=== PATIENT | male | born 1940 | race Native Hawaiian/Other Pacific Islander ===

== ENCOUNTER 2016-10-26 09:14 | Outpatient (CLI) | payer OTHER ==
[~2016-10-26 09:14] MED LIST: ENALAPR/HCTZ1 TA1 PO; K-TABS10 MEQ OR; NIACIN SR500 M1 OR; SIMV40TA57; [UNRECOGNIZED DRUG - REMARK] OR
== END 2016-10-26 19:05 | disposition home or self-care (01) ==
LOC: MRI 09:14
DX: G83.14 Monoplegia of lower limb affecting left nondominant side (principal); I63.8 Other cerebral infarction

== ENCOUNTER 2016-11-23 08:56 | Day surgery (SDC) | payer OTHER | END 2016-11-23 12:00 | disposition home or self-care (01) | LOC: OR 08:56 | PROC: 08RJ3JZ Replacement of Right Lens with Synthetic Substitute, Percutaneous Approach (ICD-10-PCS; principal; 2016-11-23) | DX: H25.811 Combined forms of age-related cataract, right eye (principal) | CPT/HCPCS: 66984; V2632 ==

== ENCOUNTER 2016-12-14 10:16 | Day surgery (SDC) | payer OTHER | END 2016-12-14 11:52 | disposition home or self-care (01) | LOC: OR 10:16 | DX: H25.812 Combined forms of age-related cataract, left eye (principal); Z53.8 Procedure and treatment not carried out for other reasons ==

== ENCOUNTER 2016-12-24 10:14 | Outpatient (CLI) | payer OTHER ==
[2016-12-24 12:20] LABS: PLATELET COUNT 275 K/uL (142-355)
[2016-12-24 12:47] LABS: POTASSIUM 3.3 mmol/L (3.6-5.2)
== END 2016-12-24 17:53 | disposition home or self-care (01) ==
LOC: LABW 10:14
PROVIDERS: Internal Medicine
DX: I63.8 Other cerebral infarction (principal); R07.89 Other chest pain; I10 Essential (primary) hypertension
CPT/HCPCS: 36415; 80053; 80061; 81000; 84443; 85027

== ENCOUNTER 2016-12-31 09:33 | Outpatient (CLI) | payer OTHER | END 2016-12-31 10:35 | disposition home or self-care (01) | LOC: MRI 09:33 | DX: I63.8 Other cerebral infarction (principal) ==

== ENCOUNTER 2017-03-15 10:37 | Outpatient (CLI) | payer OTHER | END 2017-03-15 19:03 | disposition home or self-care (01) | LOC: RAD 10:37 | DX: M54.5 Low back pain (principal) ==

== ENCOUNTER 2017-04-22 09:35 | Outpatient (CLI) | payer OTHER ==
[2017-04-22 10:04] LABS: PLATELET COUNT 306 K/uL (142-355)
[2017-04-22 10:21] LABS: POTASSIUM 3.4 mmol/L (3.6-5.2)
== END 2017-04-22 10:35 | disposition home or self-care (01) ==
LOC: LABW 09:35
PROVIDERS: Nurse Practitioner
DX: G45.8 Other transient cerebral ischemic attacks and related syndromes (principal); Z79.899 Other long term (current) drug therapy; Z51.81 Encounter for therapeutic drug level monitoring; R41.0 Disorientation, unspecified
CPT/HCPCS: 36415; 80053; 81000; 85027; 85610; 85651

== ENCOUNTER 2017-07-27 16:37 | Outpatient (CLI) | payer OTHER | END 2017-07-27 16:41 | disposition short-term general hospital (02) | LOC: AMB 16:37 | DX: S01.81XA Laceration without foreign body of other part of head, initial encounter (principal); S61.412A Laceration without foreign body of left hand, initial encounter; S61.411A Laceration without foreign body of right hand, initial encounter; W18.39XA Other fall on same level, initial encounter; Y92.098 Other place in other non-institutional residence as the place of occurrence of the external cause | CPT/HCPCS: A0425; A0427 ==

== ENCOUNTER 2017-07-27 16:43 | Emergency (ER) | payer OTHER ==
[~2017-07-27] VITALS: Ht 180.3 cm; Wt 98.0 kg
[2017-07-27 18:14] LABS: PLATELET COUNT 260 K/uL (142-355)
[2017-07-27 18:29] LABS: PARTIAL THROMBOPLASTIN TIME 21.9 SECONDS (24.5-33.6)
[2017-07-27 21:08] VITALS: BP 141/76; TEMP 98.6
== END 2017-07-27 21:12 | disposition home or self-care (01) ==
LOC: ED 16:43
PROC: 0HQ1XZZ Repair Face Skin, External Approach (ICD-10-PCS; principal; 2017-07-27)
PROC: 0HQGXZZ Repair Left Hand Skin, External Approach (ICD-10-PCS; 2017-07-27)
PROC: 0HQFXZZ Repair Right Hand Skin, External Approach (ICD-10-PCS; 2017-07-27)
DX: S01.112A Laceration without foreign body of left eyelid and periocular area, initial encounter (principal); S61.216A Laceration without foreign body of right little finger without damage to nail, initial encounter; S61.012A Laceration without foreign body of left thumb without damage to nail, initial encounter; S00.83XA Contusion of other part of head, initial encounter; R51 Headache; W18.39XA Other fall on same level, initial encounter; Y92.098 Other place in other non-institutional residence as the place of occurrence of the external cause
CPT/HCPCS: 85027; 85610; 85730; 87804; 99285; J1885

== ENCOUNTER 2017-08-03 11:20 | Inpatient (IN) | payer OTHER ==
[~2017-08-03] VITALS: Ht 180.3 cm; Wt 94.6 kg
[2017-08-03] VITALS (11 sets, daily range): BP systolic 105–200; BP diastolic 73–121; TEMP 98.5–98.6; Ht 180.3 cm; Wt 94.6 kg
[2017-08-03] MEDS ORDERED: BENA10TA3 PO (11:37)
[2017-08-03] MEDS ORDERED: DONE5TAB PO (11:38)
[2017-08-03] MEDS ORDERED: CLOP75TA2 PO (11:38)
[2017-08-03] MEDS ORDERED: SIMV40TA57 (11:39)
[2017-08-03] MEDS ORDERED: MELOXICAM7.5 MG OR (11:39)
[2017-08-03] MEDS ORDERED: FLUTICASONE50 MCG (11:39)
[2017-08-03] MEDS ORDERED: LATA0.00 OP (11:40)
[2017-08-03 13:43] LABS: POTASSIUM 3.8 mmol/L (3.6-5.2)
[2017-08-04] VITALS (23 sets, daily range): BP systolic 117–185; BP diastolic 61–98; TEMP 98.5–99
[2017-08-04 06:13] LABS: PLATELET COUNT 332 K/uL (142-355)
[2017-08-04 06:30] LABS: POTASSIUM 3.6 mmol/L (3.6-5.2)
[2017-08-05] VITALS (18 sets, daily range): BP systolic 139–180; BP diastolic 73–94; TEMP 97.8–98.5
[2017-08-05 06:30] LABS: PLATELET COUNT 359 K/uL (142-355)
[2017-08-05 06:42] LABS: POTASSIUM 3.4 mmol/L (3.6-5.2)
[2017-08-06] VITALS: BP 151/78; TEMP 99.2
[2017-08-06 04:00] VITALS: BP 165/86; TEMP 99.2
[2017-08-06 05:44] LABS: PLATELET COUNT 390 K/uL (142-355)
[2017-08-06 05:57] LABS: POTASSIUM 3.5 mmol/L (3.6-5.2)
[2017-08-06 08:00] VITALS: BP 138/70; TEMP 97.9
== END 2017-08-06 09:15 | disposition home or self-care (01) | DRG 176 ==
LOC: ED 11:20 → ICU 16:00 → MED/SURG 08-05 16:39
PROVIDERS: Internal Medicine; ADMIT Internal Medicine
DX: I26.99 Other pulmonary embolism without acute cor pulmonale (principal); I67.4 Hypertensive encephalopathy; I16.0 Hypertensive urgency; M51.36 Other intervertebral disc degeneration, lumbar region; I69.344 Monoplegia of lower limb following cerebral infarction affecting left non-dominant side; M25.512 Pain in left shoulder; Z91.81 History of falling
CPT/HCPCS: 36415; 80053; 82550; 84484; 85027; 85379; 93005; 96372; 99285; J0360; J1650; Q9963

== ENCOUNTER 2017-09-13 13:40 | Outpatient (CLI) | payer OTHER ==
[~2017-09-13 13:40] MED LIST changes: +BENA10TA3 PO; +CLOP75TA2 PO; +DONE5TAB PO; +FLUTICASONE50 MCG; +LATA0.00 OP; +MELOXICAM7.5 MG OR
== END 2017-09-13 21:49 | disposition home or self-care (01) ==
LOC: RAD 13:40
DX: M89.8X1 Other specified disorders of bone, shoulder (principal)

== ENCOUNTER 2018-01-25 08:14 | Outpatient (CLI) | payer OTHER ==
[2018-01-25 08:59] LABS: PLATELET COUNT 285 K/uL (142-355)
[2018-01-25 09:38] LABS: POTASSIUM 3.5 mmol/L (3.6-5.2)
== END 2018-01-25 19:04 | disposition home or self-care (01) ==
LOC: LABW 08:14
PROVIDERS: Internal Medicine
DX: E55.9 Vitamin D deficiency, unspecified (principal); Z79.899 Other long term (current) drug therapy; E53.8 Deficiency of other specified B group vitamins; I10 Essential (primary) hypertension
CPT/HCPCS: 36415; 80053; 80061; 81000; 82306; 82607; 84443; 85027

== ENCOUNTER 2018-01-27 13:33 | Emergency (ER) | payer OTHER ==
[~2018-01-27] VITALS: Ht 180.3 cm; Wt 97.5 kg
[2018-01-27 13:34] VITALS: TEMP 99.9
[2018-01-27 14:01] LABS: PLATELET COUNT 278 K/uL (142-355)
[2018-01-27 14:20] LABS: POTASSIUM 3.4 mmol/L (3.6-5.2)
[2018-01-27 14:45] VITALS: BP 170/79
== END 2018-01-27 17:05 | disposition short-term general hospital (02) ==
LOC: ED 13:33
PROVIDERS: Family Medicine
DX: R07.89 Other chest pain (principal); R68.89 Other general symptoms and signs
CPT/HCPCS: 36415; 80053; 83880; 84484; 85027; 93005; 96372; 99284; J1650

== ENCOUNTER 2018-01-27 17:09 | Outpatient (CLI) | payer OTHER | END 2018-01-27 18:22 | disposition short-term general hospital (02) | LOC: AMB 17:09 | DX: R07.89 Other chest pain (principal); R68.89 Other general symptoms and signs | CPT/HCPCS: A0425; A0427 ==

== ENCOUNTER 2018-03-15 07:34 | Outpatient (CLI) | payer OTHER ==
[~2018-03-15] VITALS: Ht 180.3 cm; Wt 95.3 kg
== END 2018-03-15 23:22 | disposition home or self-care (01) ==
LOC: NM 07:34
DX: R07.89 Other chest pain (principal)
CPT/HCPCS: A9500; J2785

== ENCOUNTER 2018-11-13 04:40 | Outpatient (CLI) | payer OTHER ==
[~2018-11-13 04:40] MED LIST changes: -ASPIRIN325 M1 PO; -CARV3.12 PO; -CLARITIN10 MG PO; -ELIQUIS5 MG PO; -NITR0.4S2 SL; -VITAMIN D35000 UNI6 PO
[2018-11-13] MEDS ORDERED: CARV3.12 PO (06:37)
[2018-11-13] MEDS ORDERED: ASPIRIN325 M1 PO (06:37)
[2018-11-13] MEDS ORDERED: ELIQUIS5 MG PO (06:40)
[2018-11-13] MEDS ORDERED: CLARITIN10 MG PO (06:40)
[2018-11-13] MEDS ORDERED: NITR0.4S2 SL (06:41)
[2018-11-13] MEDS ORDERED: VITAMIN D35000 UNI6 PO (06:42)
== END 2018-11-13 04:44 | disposition short-term general hospital (02) ==
LOC: AMB 04:40
DX: R47.81 Slurred speech (principal); R53.1 Weakness; S01.511A Laceration without foreign body of lip, initial encounter; W18.30XA Fall on same level, unspecified, initial encounter; Y92.018 Other place in single-family (private) house as the place of occurrence of the external cause
CPT/HCPCS: A0425; A0427

== ENCOUNTER → 2018-11-13 | Emergency (ER) | payer OTHER ==
[~2018-11-13] VITALS: Ht 180.3 cm; Wt 95.3 kg
[~2018-11-13] MED LIST changes: +ASPIRIN325 M1 PO; +CARV3.12 PO; +CLARITIN10 MG PO; +ELIQUIS5 MG PO; +NITR0.4S2 SL; +VITAMIN D35000 UNI6 PO
[2018-11-13 05:25] LABS: PLATELET COUNT 288 K/uL (142-355)
[2018-11-13 05:35] LABS: POTASSIUM 3.4 mmol/L (3.6-5.2)
[2018-11-13 06:30] VITALS: BP 195/86
== END ==
LOC: ED 04:49
PROVIDERS: Emergency Medicine
DX: I63.89 Other cerebral infarction (principal); R29.810 Facial weakness; I69.328 Other speech and language deficits following cerebral infarction
CPT/HCPCS: 80053; 85027; 93005; 99285

== ENCOUNTER 2018-11-21 16:36 | Inpatient (IN) | payer OTHER ==
[~2018-11-21] VITALS: Ht 180.3 cm; Wt 89.2 kg
[~2018-11-21 16:36] MED LIST changes: +ASPIRIN325 M1 PO; +CARV3.12 PO; +CLARITIN10 MG PO; +ELIQUIS5 MG PO; +NITR0.4S2 SL; +VITAMIN D35000 UNI6 PO
[2018-11-21 17:05] VITALS: BP 162/60; TEMP 99.1; Ht 180.3 cm; Wt 89.2 kg
[2018-11-21 17:40] LABS: PLATELET COUNT 327 K/uL (142-355)
[2018-11-21 17:51] LABS: POTASSIUM 3.8 mmol/L (3.6-5.2)
[2018-11-21] MEDS ORDERED: AMLODIPINE BESYLATE PO (18:27)
[2018-11-21] MEDS ORDERED: LIPITOR80 MG PO (18:28)
[2018-11-21] MEDS ORDERED: CITA20TA2 PO (18:29)
[2018-11-21] MEDS ORDERED: DOCU100C10 PO (18:29)
[2018-11-21] MEDS ORDERED: HYDRALAZINE10 MG PO (18:30)
[2018-11-21] MEDS ORDERED: ZESTRIL40 MG PO (18:32)
[2018-11-21] MEDS ORDERED: SENNA PO (18:35)
[2018-11-21] MEDS ORDERED: LEVO250T2 PO (18:37)
[2018-11-21 20:00] VITALS: BP 115/96; TEMP 98.1
[2018-11-22 20:39] VITALS: BP 186/91; TEMP 99.1
[2018-11-23 20:00] VITALS: BP 151/61; TEMP 98
[2018-11-24 05:15] LABS: POTASSIUM 3.5 mmol/L (3.6-5.2)
[2018-11-24 08:00] VITALS: BP 179/77; TEMP 98.1
[2018-11-24 20:00] VITALS: BP 165/69; TEMP 98.7
[2018-11-25 08:00] VITALS: BP 166/72; TEMP 98.1
[2018-11-25 20:00] VITALS: BP 163/71; TEMP 98.4
[2018-11-27 08:05] VITALS: BP 153/68; TEMP 99.2
[2018-11-27 20:00] VITALS: BP 159/71; TEMP 98.9
[2018-11-28 08:00] VITALS: BP 166/67; TEMP 98.1
[2018-11-28 10:12] LABS: POTASSIUM 3.9 mmol/L (3.6-5.2)
== END 2018-11-28 13:30 | DRG 555 ==
LOC: MED/SURG 16:36
PROVIDERS: ADMIT Internal Medicine
DX: M62.81 Muscle weakness (generalized) (principal); I63.511 Cerebral infarction due to unspecified occlusion or stenosis of right middle cerebral artery; I69.354 Hemiplegia and hemiparesis following cerebral infarction affecting left non-dominant side; I10 Essential (primary) hypertension; F03.90 Unspecified dementia, unspecified severity, without behavioral disturbance, psychotic disturbance, mood disturbance, and anxiety; E04.1 Nontoxic single thyroid nodule; I25.10 Atherosclerotic heart disease of native coronary artery without angina pectoris; N40.0 Benign prostatic hyperplasia without lower urinary tract symptoms; R13.12 Dysphagia, oropharyngeal phase
CPT/HCPCS: 80053; 81000; 85027; 94760

== ENCOUNTER 2018-12-19 11:55 | Inpatient (IN) | payer OTHER ==
[~2018-12-19 11:55] MED LIST changes: +AMLODIPINE BESYLATE PO; +CITA20TA2 PO; +DOCU100C10 PO; +HYDRALAZINE10 MG PO; +LEVO250T2 PO; +LIPITOR80 MG PO; +SENNA PO; +ZESTRIL40 MG PO
== END 2019-01-19 11:52 | disposition still patient (30) ==
LOC: PAVC 11:55
PROVIDERS: ADMIT Internal Medicine
DX: I69.354 Hemiplegia and hemiparesis following cerebral infarction affecting left non-dominant side (principal); I63.411 Cerebral infarction due to embolism of right middle cerebral artery; M62.81 Muscle weakness (generalized); R26.2 Difficulty in walking, not elsewhere classified; R13.12 Dysphagia, oropharyngeal phase; R27.8 Other lack of coordination; I25.10 Atherosclerotic heart disease of native coronary artery without angina pectoris; F03.90 Unspecified dementia, unspecified severity, without behavioral disturbance, psychotic disturbance, mood disturbance, and anxiety; F41.9 Anxiety disorder, unspecified; I10 Essential (primary) hypertension

== ENCOUNTER 2019-01-19 14:01 | Inpatient (IN) | payer OTHER | END 2019-02-19 17:15 | disposition still patient (30) | LOC: PAVC 14:01 | PROVIDERS: ADMIT Internal Medicine ==

== ENCOUNTER 2019-01-31 16:42 | Outpatient (CLI) | payer OTHER | END 2019-01-31 20:53 | disposition home or self-care (01) | LOC: RAD 16:42 | DX: R13.12 Dysphagia, oropharyngeal phase (principal) ==

== ENCOUNTER 2019-02-19 17:34 | Inpatient (IN) | payer OTHER | END 2019-03-21 12:56 | disposition still patient (30) | LOC: PAVC 17:34 | PROVIDERS: ADMIT Internal Medicine ==

== ENCOUNTER 2019-03-14 15:10 | Outpatient (CLI) | payer OTHER ==
[2019-03-14 15:32] LABS: PLATELET COUNT 308 K/uL (142-355)
[2019-03-14 15:59] LABS: POTASSIUM 4.4 mmol/L (3.6-5.2)
== END 2019-03-14 19:42 | disposition home or self-care (01) ==
LOC: LAB 15:10
PROVIDERS: Internal Medicine
DX: R40.0 Somnolence (principal)
CPT/HCPCS: 80053; 81000; 85027

== ENCOUNTER 2019-03-21 13:23 | Inpatient (IN) | payer OTHER | END 2019-04-21 14:04 | disposition still patient (30) | LOC: PAVC 13:23 | PROVIDERS: ADMIT Internal Medicine ==

== ENCOUNTER 2019-04-21 14:24 | Inpatient (IN) | payer OTHER | END 2019-05-21 08:00 | disposition still patient (30) | LOC: PAVC 14:24 | PROVIDERS: ADMIT Internal Medicine ==

== ENCOUNTER 2019-05-09 15:37 | Outpatient (CLI) | payer OTHER | END 2019-05-09 22:19 | disposition home or self-care (01) | LOC: RAD 15:37 | DX: M25.512 Pain in left shoulder (principal); M54.2 Cervicalgia ==

== ENCOUNTER 2019-05-21 11:00 | Inpatient (IN) | payer OTHER | END 2019-06-21 09:29 | disposition still patient (30) | LOC: PAVC 11:00 | PROVIDERS: ADMIT Internal Medicine ==

== ENCOUNTER 2019-05-22 13:40 | Outpatient (CLI) | payer OTHER ==
[2019-05-22 14:16] LABS: POTASSIUM 4.3 mmol/L (3.6-5.2)
[2019-05-22 14:20] LABS: PLATELET COUNT 332 K/uL (142-355)
== END 2019-05-22 20:47 | disposition home or self-care (01) ==
LOC: LAB 13:40
PROVIDERS: Internal Medicine
DX: I10 Essential (primary) hypertension (principal); I63.411 Cerebral infarction due to embolism of right middle cerebral artery; I25.10 Atherosclerotic heart disease of native coronary artery without angina pectoris
CPT/HCPCS: 80053; 85027

== ENCOUNTER 2019-06-09 13:01 | Outpatient (CLI) | payer OTHER | END 2019-06-09 19:42 | disposition home or self-care (01) | LOC: LAB 13:01 | DX: M25.551 Pain in right hip (principal); M10.9 Gout, unspecified | CPT/HCPCS: 84550 ==

== ENCOUNTER 2019-06-09 13:23 | Outpatient (CLI) | payer OTHER | END 2019-06-09 19:43 | disposition home or self-care (01) | LOC: RAD 13:23 | DX: M25.551 Pain in right hip (principal) ==

== ENCOUNTER 2019-07-22 11:05 | Inpatient (IN) | payer OTHER | END 2019-08-20 14:09 | disposition still patient (30) | LOC: PAVC 11:05 | PROVIDERS: ADMIT Internal Medicine ==

== ENCOUNTER 2019-08-20 14:28 | Inpatient (IN) | payer OTHER | END 2019-09-20 11:34 | disposition still patient (30) | LOC: PAVC 14:28 | PROVIDERS: ADMIT Internal Medicine ==

== ENCOUNTER 2019-09-20 12:02 | Inpatient (IN) | payer OTHER | END 2019-10-20 11:20 | disposition still patient (30) | LOC: PAVC 12:02 | PROVIDERS: ADMIT Internal Medicine ==

== ENCOUNTER 2019-10-20 11:45 | Inpatient (IN) | payer OTHER | END 2019-11-20 11:20 | disposition still patient (30) | LOC: PAVC 11:45 | PROVIDERS: ADMIT Internal Medicine | CPT/HCPCS: 87635; U0002 ==

== ENCOUNTER 2019-11-20 11:33 | Inpatient (IN) | payer OTHER | END 2019-12-20 11:54 | disposition still patient (30) | LOC: PAVC 11:33 | PROVIDERS: ADMIT Internal Medicine ==

== ENCOUNTER 2019-11-21 02:22 | Outpatient (CLI) | payer OTHER ==
[2019-11-21 06:03] LABS: PLATELET COUNT 345 K/uL (142-355)
[2019-11-21 06:15] LABS: POTASSIUM 4.1 mmol/L (3.6-5.2)
== END 2019-11-21 19:03 | disposition home or self-care (01) ==
LOC: LAB 02:22
PROVIDERS: Internal Medicine
DX: I63.411 Cerebral infarction due to embolism of right middle cerebral artery (principal); I10 Essential (primary) hypertension
CPT/HCPCS: 80053; 85027

== ENCOUNTER 2019-12-20 12:02 | Inpatient (IN) | payer OTHER | END 2020-01-20 10:12 | disposition still patient (30) | LOC: PAVC 12:02 | PROVIDERS: ADMIT Internal Medicine ==

== ENCOUNTER 2020-01-20 10:21 | Inpatient (IN) | payer OTHER | END 2020-02-20 14:00 | disposition still patient (30) | LOC: PAVC 10:21 | PROVIDERS: ADMIT Internal Medicine ==

== ENCOUNTER 2020-02-16 06:36 | Outpatient (CLI) | payer OTHER | END 2020-02-16 20:28 | disposition home or self-care (01) | LOC: LAB 06:36 | DX: Z12.5 Encounter for screening for malignant neoplasm of prostate (principal); R97.20 Elevated prostate specific antigen [PSA] | CPT/HCPCS: 84153 ==

== ENCOUNTER 2020-02-20 14:21 | Inpatient (IN) | payer OTHER | END 2020-03-21 14:07 | disposition still patient (30) | LOC: PAVC 14:21 | PROVIDERS: ADMIT Internal Medicine ==

== ENCOUNTER 2020-03-21 14:54 | Inpatient (IN) | payer OTHER | END 2020-04-21 09:00 | disposition still patient (30) | LOC: PAVC 14:54 | PROVIDERS: ADMIT Internal Medicine ==

== ENCOUNTER 2020-04-21 09:00 | Inpatient (IN) | payer OTHER | END 2020-05-21 12:23 | disposition still patient (30) | LOC: PAVC 09:00 | PROVIDERS: ADMIT Internal Medicine; ATTEND Internal Medicine ==

== ENCOUNTER 2020-05-21 12:32 | Inpatient (IN) | payer OTHER | END 2020-06-21 09:46 | disposition still patient (30) | LOC: PAVC 12:32 | PROVIDERS: ADMIT Internal Medicine; ATTEND Internal Medicine ==

== ENCOUNTER 2020-05-22 08:19 | Outpatient (CLI) | payer OTHER ==
[2020-05-22 08:36] LABS: PLATELET COUNT 260 K/uL (142-355)
== END 2020-05-22 19:29 | disposition home or self-care (01) ==
LOC: LAB 08:19
PROVIDERS: ATTEND Internal Medicine
DX: I63.411 Cerebral infarction due to embolism of right middle cerebral artery (principal); I10 Essential (primary) hypertension
CPT/HCPCS: 80053; 85027

== ENCOUNTER 2020-06-21 09:55 | Inpatient (IN) | payer OTHER | END 2020-07-22 15:29 | disposition still patient (30) | LOC: PAVC 09:55 | PROVIDERS: ADMIT Internal Medicine; ATTEND Internal Medicine ==

== ENCOUNTER 2020-07-22 15:53 | Inpatient (IN) | payer OTHER | END 2020-08-19 11:01 | disposition still patient (30) | LOC: PAVC 15:53 | PROVIDERS: ADMIT Internal Medicine; ATTEND Internal Medicine ==

== ENCOUNTER 2020-08-19 11:27 | Inpatient (IN) | payer OTHER | END 2020-09-19 11:41 | disposition still patient (30) | LOC: PAVC 11:27 | PROVIDERS: ADMIT Internal Medicine; ATTEND Internal Medicine ==

== ENCOUNTER 2020-09-19 11:52 | Inpatient (IN) | payer OTHER | END 2020-10-19 11:24 | disposition still patient (30) | LOC: PAVC 11:52 | PROVIDERS: ADMIT Internal Medicine; ATTEND Internal Medicine ==

== ENCOUNTER 2020-10-04 06:50 | Outpatient (CLI) | payer OTHER | END 2020-10-04 19:16 | disposition home or self-care (01) | LOC: LAB 06:50 | PROVIDERS: ATTEND Internal Medicine | DX: R97.20 Elevated prostate specific antigen [PSA] (principal) | CPT/HCPCS: 84153 ==

== ENCOUNTER 2020-10-19 11:32 | Inpatient (IN) | payer OTHER | END 2020-11-19 15:43 | disposition still patient (30) | LOC: PAVC 11:32 | PROVIDERS: ADMIT Internal Medicine; ATTEND Internal Medicine ==

== ENCOUNTER 2020-11-10 17:06 | Outpatient (CLI) | payer OTHER | END 2020-11-10 18:09 | disposition home or self-care (01) | LOC: LAB 17:06 | PROVIDERS: ATTEND Internal Medicine | DX: R19.4 Change in bowel habit (principal); R19.7 Diarrhea, unspecified | CPT/HCPCS: 83630; 87015; 87045; 87324; 87328; 87329; 87449; 87899 ==

== ENCOUNTER 2020-11-19 07:13 | Outpatient (CLI) | payer OTHER ==
[2020-11-19 09:34] LABS: PLATELET COUNT 274 K/uL (142-355)
== END 2020-11-19 19:06 | disposition home or self-care (01) ==
LOC: LAB 07:13
PROVIDERS: ATTEND Internal Medicine
DX: I10 Essential (primary) hypertension (principal); Z12.5 Encounter for screening for malignant neoplasm of prostate; I63.411 Cerebral infarction due to embolism of right middle cerebral artery; R97.20 Elevated prostate specific antigen [PSA]
CPT/HCPCS: 80053; 84153; 85027

== ENCOUNTER 2020-11-19 16:55 | Inpatient (IN) | payer OTHER | END 2020-12-19 08:00 | disposition still patient (30) | LOC: PAVC 16:55 | PROVIDERS: ADMIT Internal Medicine; ATTEND Internal Medicine ==

== ENCOUNTER 2020-11-29 08:10 | Emergency (ER) | payer OTHER ==
[~2020-11-29] VITALS: Ht 180.3 cm; Wt 88.9 kg
[2020-11-29 08:15] VITALS: TEMP 99
[2020-11-29 08:52] LABS: PLATELET COUNT 245 K/uL (142-355)
[2020-11-29 08:58] LABS: POTASSIUM 4.2 mmol/L (3.6-5.2)
[2020-11-29 09:06] LABS: PARTIAL THROMBOPLASTIN TIME 26.5 SECONDS (24.5-33.6)
[2020-11-29 10:49] VITALS: BP 161/67
== END 2020-11-29 10:59 ==
LOC: ED 08:15
PROVIDERS: Family Medicine
DX: S60.512A Abrasion of left hand, initial encounter (principal); S70.01XA Contusion of right hip, initial encounter; S61.213A Laceration without foreign body of left middle finger without damage to nail, initial encounter; S61.215A Laceration without foreign body of left ring finger without damage to nail, initial encounter; W05.0XXA Fall from non-moving wheelchair, initial encounter; Y92.128 Other place in nursing home as the place of occurrence of the external cause
CPT/HCPCS: 80053; 81000; 85027; 85610; 85730; 99283

== ENCOUNTER 2020-12-01 19:46 | Outpatient (CLI) | payer OTHER | END 2020-12-01 20:32 | disposition home or self-care (01) | LOC: RAD 19:46 | PROVIDERS: ATTEND Internal Medicine | DX: R06.02 Shortness of breath (principal) ==

== ENCOUNTER 2020-12-19 09:00 | Inpatient (IN) | payer OTHER ==
[~2020-12-19 09:00] MED LIST changes: +ASPIRIN PO; -ASPIRIN325 M1 PO; +FLUTICASON50 MCG/ACT NAS; -FLUTICASONE50 MCG
[2021-01-10] MEDS ORDERED: MELATONIN10 MG PO (01:40)
[2021-01-10] MEDS ORDERED: K-TAB20 MEQ PO (01:45)
[2021-01-10] MEDS ORDERED: CARV6.25 PO (01:50)
[2021-01-10] MEDS ORDERED: FLUTICASON50 MCG/ACT NAS (01:57)
[2021-01-10] MEDS ORDERED: NAPROXEN SODIU500 M1 PO (01:59)
[2021-01-10] MEDS ORDERED: CLARITIN10 M1 PO (02:08)
[2021-01-10] MEDS ORDERED: TYLENOL325 MG PO (02:13)
[2021-01-10] MEDS ORDERED: LIPITOR40 MG PO (12:14)
== END 2021-01-19 08:00 | disposition still patient (30) ==
LOC: PAVC 09:00
PROVIDERS: ADMIT Internal Medicine; ATTEND Internal Medicine
DX: I69.322 Dysarthria following cerebral infarction (principal); I69.392 Facial weakness following cerebral infarction; I69.354 Hemiplegia and hemiparesis following cerebral infarction affecting left non-dominant side; R13.12 Dysphagia, oropharyngeal phase; M62.81 Muscle weakness (generalized); R26.2 Difficulty in walking, not elsewhere classified; Z74.1 Need for assistance with personal care

== ENCOUNTER 2020-12-24 04:28 | Outpatient (CLI) | payer OTHER ==
[~2020-12-24 04:28] MED LIST changes: -ASPIRIN PO; +ASPIRIN325 M1 PO; -FLUTICASON50 MCG/ACT NAS; +FLUTICASONE50 MCG
== END 2020-12-24 19:05 | disposition home or self-care (01) ==
LOC: LAB 04:28
PROVIDERS: ATTEND Internal Medicine
DX: N42.9 Disorder of prostate, unspecified (principal); R97.20 Elevated prostate specific antigen [PSA]
CPT/HCPCS: 84153

== ENCOUNTER 2021-01-09 21:57 | Emergency (ER) | payer OTHER ==
[~2021-01-09] VITALS: Ht 180.3 cm; Wt 88.9 kg
[~2021-01-09 21:57] MED LIST changes: +ASPIRIN PO; -ASPIRIN325 M1 PO; +FLUTICASON50 MCG/ACT NAS; -FLUTICASONE50 MCG
[2021-01-09 22:18] LABS: POTASSIUM 4.1 mmol/L (3.6-5.2); SODIUM 145 mmol/L (136-145)
[2021-01-09 22:20] LABS: PLATELET COUNT 309 K/uL (142-355)
[2021-01-09 22:29] LABS: PARTIAL THROMBOPLASTIN TIME 23.6 SECONDS (24.5-33.6)
[2021-01-10 00:58] VITALS: BP 179/80; TEMP 98.1
[2021-01-10] MEDS ORDERED: MELATONIN10 MG PO ×2 (01:40)
[2021-01-10] MEDS ORDERED: K-TAB20 MEQ PO ×2 (01:45)
[2021-01-10] MEDS ORDERED: CARV6.25 PO ×2 (01:50)
[2021-01-10] MEDS ORDERED: FLUTICASON50 MCG/ACT NAS ×2 (01:57)
[2021-01-10] MEDS ORDERED: NAPROXEN SODIU500 M1 PO ×2 (01:59)
[2021-01-10] MEDS ORDERED: CLARITIN10 M1 PO ×2 (02:08)
[2021-01-10] MEDS ORDERED: TYLENOL325 MG PO ×2 (02:13)
[2021-01-10] MEDS ORDERED: LIPITOR40 MG PO ×2 (12:14)
== END 2021-01-10 00:50 | disposition still patient (30) ==
LOC: ED 21:57
PROVIDERS: Hospitalist
DX: R53.81 Other malaise (principal); R47.01 Aphasia; Z86.73 Personal history of transient ischemic attack (TIA), and cerebral infarction without residual deficits; Z20.822 Contact with and (suspected) exposure to COVID-19; Z79.899 Other long term (current) drug therapy; Z51.81 Encounter for therapeutic drug level monitoring
CPT/HCPCS: 36415; 80053; 82550; 82553; 83880; 84484; 85027; 85610; 85730; 87635; 93005; 99284; U0003

== ENCOUNTER 2021-01-09 23:20 | Observation (INO) | payer OTHER ==
[~2021-01-09] VITALS: Ht 180.3 cm; Wt 91.7 kg
[2021-01-10 01:32] VITALS: BP 169/65; TEMP 98.2; Ht 180.3 cm; Wt 91.7 kg
[2021-01-10] MEDS ORDERED: MELATONIN10 MG PO ×2 (01:40)
[2021-01-10] MEDS ORDERED: K-TAB20 MEQ PO ×2 (01:45)
[2021-01-10] MEDS ORDERED: CARV6.25 PO ×2 (01:50)
[2021-01-10] MEDS ORDERED: FLUTICASON50 MCG/ACT NAS ×2 (01:57)
[2021-01-10] MEDS ORDERED: NAPROXEN SODIU500 M1 PO ×2 (01:59)
[2021-01-10] MEDS ORDERED: CLARITIN10 M1 PO ×2 (02:08)
[2021-01-10] MEDS ORDERED: TYLENOL325 MG PO ×2 (02:13)
[2021-01-10 04:00] VITALS: BP 187/72; TEMP 97.9
[2021-01-10 08:00] VITALS: BP 164/77; TEMP 98.5
[2021-01-10 12:00] VITALS: BP 164/68; TEMP 98.2
[2021-01-10] MEDS ORDERED: LIPITOR40 MG PO ×2 (12:14)
== END 2021-01-10 13:50 ==
LOC: MED/SURG 23:20
PROVIDERS: ADMIT Internal Medicine; ATTEND Internal Medicine
DX: I63.89 Other cerebral infarction (principal); I10 Essential (primary) hypertension; E78.49 Other hyperlipidemia; I25.10 Atherosclerotic heart disease of native coronary artery without angina pectoris; F03.90 Unspecified dementia, unspecified severity, without behavioral disturbance, psychotic disturbance, mood disturbance, and anxiety; K21.9 Gastro-esophageal reflux disease without esophagitis; N40.0 Benign prostatic hyperplasia without lower urinary tract symptoms
CPT/HCPCS: 99220; G0378; G0379; J1650; J3490

== ENCOUNTER 2021-01-19 09:00 | Inpatient (IN) | payer OTHER ==
[~2021-01-19 09:00] MED LIST changes: +CARV6.25 PO; +CLARITIN10 M1 PO; +K-TAB20 MEQ PO; +LIPITOR40 MG PO; +MELATONIN10 MG PO; +NAPROXEN SODIU500 M1 PO; +TYLENOL325 MG PO
== END 2021-02-19 13:48 | disposition still patient (30) ==
LOC: PAVC 09:00
PROVIDERS: ADMIT Internal Medicine; ATTEND Internal Medicine
DX: I69.322 Dysarthria following cerebral infarction (principal); I69.392 Facial weakness following cerebral infarction; I69.354 Hemiplegia and hemiparesis following cerebral infarction affecting left non-dominant side; R13.12 Dysphagia, oropharyngeal phase; M62.81 Muscle weakness (generalized); R26.2 Difficulty in walking, not elsewhere classified; Z74.1 Need for assistance with personal care

== ENCOUNTER 2021-02-03 07:04 | Outpatient (CLI) | payer OTHER | END 2021-02-03 19:04 | disposition home or self-care (01) | LOC: LAB 07:04 | PROVIDERS: ATTEND Internal Medicine | DX: Z74.1 Need for assistance with personal care (principal); R97.20 Elevated prostate specific antigen [PSA] | CPT/HCPCS: 84153 ==

== ENCOUNTER 2021-02-19 13:56 | Inpatient (IN) | payer OTHER | END 2021-03-21 09:37 | disposition still patient (30) | LOC: PAVC 13:56 | PROVIDERS: ADMIT Internal Medicine; ATTEND Internal Medicine ==

== ENCOUNTER 2021-05-21 09:07 | Outpatient (CLI) | payer OTHER ==
[2021-05-21 09:47] LABS: PLATELET COUNT 256 K/uL (142-355)
[2021-05-21 10:02] LABS: POTASSIUM 3.8 mmol/L (3.6-5.2)
== END 2021-05-21 20:15 | disposition home or self-care (01) ==
LOC: LAB 09:07
PROVIDERS: ATTEND Internal Medicine
DX: I10 Essential (primary) hypertension (principal); I63.411 Cerebral infarction due to embolism of right middle cerebral artery; R79.89 Other specified abnormal findings of blood chemistry
CPT/HCPCS: 36415; 80053; 82728; 83540; 85027

== ENCOUNTER 2021-05-21 11:31 | Inpatient (IN) | payer OTHER | END 2021-06-21 09:07 | disposition still patient (30) | LOC: PAVC 11:31 | PROVIDERS: ADMIT Internal Medicine; ATTEND Internal Medicine ==

== ENCOUNTER 2021-06-22 20:18 | Outpatient (CLI) | payer OTHER | END 2021-06-22 23:00 | disposition home or self-care (01) | LOC: RAD 20:18 | PROVIDERS: ATTEND Internal Medicine | DX: I69.354 Hemiplegia and hemiparesis following cerebral infarction affecting left non-dominant side (principal); W19.XXXA Unspecified fall, initial encounter ==